=== PATIENT | female | born 1985 | race Hispanic/Latino ===

== ENCOUNTER → 2022-09-05 | Day surgery (SDC) | payer OTHER ==
[~2022-09-05] MED LIST: AZO STANDARD95 MG PO; IOPAMIDOL 610MG/1ML 300 MG/ML VIAL IV ONE; TRICOR145 MG PO
[2022-09-05 15:30] VITALS: BP 124/90
== END | disposition home or self-care (01) ==
LOC: OR 11:07
PROVIDERS: ATTEND Urology
DX: N20.0 Calculus of kidney (principal); Z46.6 Encounter for fitting and adjustment of urinary device; E78.5 Hyperlipidemia, unspecified; Z79.899 Other long term (current) drug therapy; Z86.19 Personal history of other infectious and parasitic diseases
CPT/HCPCS: 52356; 74420; C1758; C2617; J0690; Q9967

== ENCOUNTER → 2022-09-26 | Outpatient (CLI) | payer OTHER ==
[~2022-09-26] MED LIST changes: -IOPAMIDOL 610MG/1ML 300 MG/ML VIAL IV ONE
== END ==
LOC: RAD 13:04
PROVIDERS: ATTEND Urology
DX: N20.0 Calculus of kidney (principal)
CPT/HCPCS: 74018